=== PATIENT | male | born 1970 ===

== ENCOUNTER 2023-04-10 10:11 | Outpatient (CLI) | payer OTHER, SELFPAY ==
--- NOTE | 2023-04-10 09:30 | DI.RAD_ITS ---
Exam(s) XR KNEE LT 4V+ EXAM: XR KNEE LT 4V+ CLINICAL HISTORY: LEFT KNEE PAIN. TECHNIQUE: 2D digital imaging was performed. Three views. COMPARISON: No exams were available for comparison FINDINGS: BONES: No acute fracture is present. No bony destructive lesion is seen. Lucencies in the distal fem ur and proximal tibia consistent with prior ACL repair. JOINTS: There is severe narrowing of the medial femoral tibial joint space, with a [id number] appea pb. There is varus angulation. A moderate joint effusion is seen. Patella femoral joint space is maintained. SOFT TISSUE: Normal. IMPRESSION: Severe degenerative changes of the medial femoral tibial joint. DATA REPOSITORY: RADIATION DOSE DELIVERED:
== END 2023-04-10 10:12 | disposition home or self-care (01) ==
LOC: DIORS 10:12
PROVIDERS: Visit Provider Student in an Organized Health Care Education/Training Program
DX: M17.12 Unilateral primary osteoarthritis, left knee (principal)
CPT/HCPCS: 73564

== ENCOUNTER 2023-06-27 09:09 | Day surgery (SDC) | payer OTHER, SELFPAY ==
--- NOTE | 2023-06-27 08:09 | HPE_ITS ---
Assessment and Plan Assessment and plan (1) Left carpal tunnel syndrome: Status: Acute Assessment and plan: Plan: Educated patient on surgery covering surgical technique, recovery process, benefits and risks including but not limited to risk of infection, blood clot, damage to soft tissue/blood vessels/nerves in detail. After discussion patient gives verbal understanding of risks and elects to proceed with scheduling surgery. Patient had opportunity to have questions answered to their satisfaction. They will contact office if issues arise. Patient will continue to be scheduled for left carpal tunnel release and associated procedures with Dr Andrew Craroll History of Present Illness Narrative: Mr. Terry is a 53-year-old male who presents to hospital for surgery regarding his left carpal tunnel syndrome. Please refer to last orthopedic note for full history. Due to his continued symptoms he wishes to proceed with surgery. Denies any symptom changes since his last visit. Review of Systems Cardiovascular Cardiovascular: Denies chest pain and Denies dyspnea Respiratory Respiratory: Denies cough and Denies dyspnea PFSH All Active Problems Left carpal tunnel syndrome (Acute) Osteoarthritis of left knee (Acute) Bilateral carpal tunnel syndrome (Acute) Opioid use disorder (Acute) Hyperlipidemia (Acute) HTN (hypertension) (Chronic) Medical History ADD (attention deficit disorder) High cholesterol Surgical History History of bilateral inguinal hernia repair S/P ACL reconstruction LEFT PATELLAR TENDON GRAFT--2002 Social History Smoking/Tobacco Use Status: Former Tobacco Use Quit Date: 06/27/05 Tobacco: How many years used: 30 Smoking risk assessment performed?: Yes Alcohol Intake: former Drug use: Current Sobriety Substance use type: opiates Housing: other Do you feel safe at home: Yes Do you feel safe in your relationship?: Yes Meds Allergies and Home Medications Allergies Allergy/AdvReac Type Severity Reaction Status Date / Time No Known Allergies Allergy Verified 06/27/23 09:53 Home Medications Medication Instructions Recorded Confirmed Type atorvastatin 40 mg tablet 40 mg PO DAILY 01/10/23 06/27/23 History bupropion HCl 75 mg tablet 450 mg PO DAILY 01/10/23 06/27/23 History clonidine HCl 0.2 mg tablet 0.2 mg PO QHS 01/10/23 06/27/23 History docusate sodium 100 mg capsule 100 mg PO DAILY 01/10/23 06/27/23 History lisinopril 5 mg tablet 5 mg PO DAILY 01/10/23 06/27/23 History acetaminophen 500 mg tablet 500 mg PO Q6H PRN pain #60 tabs 06/27/23 Rx atomoxetine 40 mg capsule 40 mg PO DAILY 06/27/23 06/27/23 History buprenorphine HCl 2 mg sublingual 2 mg sublingual DAILY 06/27/23 06/27/23 History tablet celecoxib 200 mg capsule (Celebrex) 200 mg PO BID 06/27/23 06/27/23 History hydrocodone 5 mg-acetaminophen 325 1 tab PO Q6H PRN severe pain #6 06/27/23 Rx mg tablet tabs Exam Const General: cooperative and no acute distress Resp Effort & Inspection: normal respiratory effort and able to speak in complete sentences Auscultation: clear to auscultation bilaterally, no rales, no rhonchi and no wheezes Cardio Heart Sounds: S1 normal, S2 normal and no murmurs
--- NOTE | 2023-06-27 08:13 | W.PM.DSUDISC ---
Date of service: 06/27/23 Time of Service: 10:49 Discharge Plan Disposition Patient Disposition: Home Condition: Good Discharge Details Reason For Visit: Left carpal tunnel syndrome Attending Provider: Daryn Carroll Primary Care Provider: Unknown,Unknown Home Meds and New Rx's Prescriptions: New hydrocodone-acetaminophen 5-325 mg tablet 1 tab PO Q6H PRN (Reason: severe pain) Qty: 6 0RF Rx Instructions: Take one tablet up to every 6 hours as needed for severe postoperative pain acetaminophen 500 mg tablet 500 mg PO Q6H PRN (Reason: pain) Qty: 60 2RF Continued atorvastatin 40 mg tablet 40 mg PO DAILY bupropion HCl 75 mg tablet 450 mg PO DAILY Rx Instructions: administer 6 hours apart clonidine HCl 0.2 mg tablet 0.2 mg PO QHS Hold Instructions: Pt Stopped/Never Started docusate sodium 100 mg capsule 100 mg PO DAILY lisinopril 5 mg tablet 5 mg PO DAILY buprenorphine HCl 2 mg tablet, sublingual 2 mg sublingual DAILY atomoxetine 40 mg capsule 40 mg PO DAILY celecoxib [Celebrex] 200 mg capsule 200 mg PO BID Discharge Instructions Stand Alone Forms: [place] Tunnel Release Referrals: Daryn Carroll MD [ [facility] STAFF PHYSICIAN] - Activity:: Elevate Remove Dressings/Wound Care:: 48 hours Shower/Bathe:: 48 hours Diet:: As Tolerated Discharge Orders Discharge Orders: Discharge Order (Routine); Ordered 06/27/23 Ordered By: Roma Dejesus DS: Diagnosis Discharge Diagnosis (1) Left carpal tunnel syndrome: Status: Acute
[2023-06-27 09:05] VITALS: BP 124/81; PULSE 60; RESP 18; TEMP 36.4; O2SAT 100
[2023-06-27 09:31] VITALS: BP 124/81; PULSE 60; RESP 18; TEMP 36.4; O2SAT 100
--- NOTE | 2023-06-27 09:44 | W.ANESPRE ---
General Info Date of Service Date Performed: 06/27/23 Height: 5 ft 6 in Weight: 76.3 kg Body Mass Index (BMI): 27.1 Surgical Procedure: Operation Date: 06/27/23 10:25 Proposed Procedure Side Surgeon p Wrist ECTR Left Daryn Carroll MD Actual Procedure Side Surgeon p Wrist ECTR Left Daryn Carroll MD Pre-Op Diagnosis Post-Op Diagnosis carpal tunnel syndrome, left carpal tunnel syndrome, left Meds Allergies and Home Medications Allergies Allergy/AdvReac Type Severity Reaction Status Date / Time No Known Allergies Allergy Verified 06/27/23 09:53 Home Medication Medication Instructions Recorded atorvastatin 40 mg tablet 40 mg PO DAILY 01/10/23 bupropion HCl 75 mg tablet 450 mg PO DAILY 01/10/23 clonidine HCl 0.2 mg tablet 0.2 mg PO QHS 01/10/23 docusate sodium 100 mg capsule 100 mg PO DAILY 01/10/23 lisinopril 5 mg tablet 5 mg PO DAILY 01/10/23 atomoxetine 40 mg capsule 40 mg PO DAILY 06/27/23 buprenorphine HCl 2 mg sublingual 2 mg sublingual DAILY 06/27/23 tablet celecoxib 200 mg capsule (Celebrex) 200 mg PO BID 06/27/23 Current Visit Medications: Current Medications Generic Name Dose Route Start Last Admin Trade Name Shamirq PRN Reason Stop Dose Admin Acetaminophen 650 mg 06/27/23 08:09 Acetaminophen 325 Mg Tab PO 07/27/23 08:08 Q4H PRN PRN Hydrocodone Bitart/Acetaminophen 0 tab 06/27/23 08:09 Hydrocodone 5/Acetaminophen 325 Tab PO 07/27/23 08:08 Q3H PRN PRN Pain Ringer's Solution 1,000 mls @ 80 mls/hr 06/27/23 06:00 IV 07/23/23 23:59 INFUSION PANCHO Cefazolin Sodium/Dextrose 2 gm in 50 mls @ 100 mls/hr 06/27/23 06:00 Ancef Duplex IVPB 06/27/23 16:00 PREOP PANCHO IV Miscellaneous Supplies 1 each 06/27/23 06:00 Iv Access IV 07/23/23 23:59 DIRECTED PANCHO Sodium Chloride 0 ml 06/27/23 06:00 Normal Saline Flush 10 Ml Syr IV 07/23/23 23:59 PRN PRN Sodium Chloride 0 ml 06/27/23 06:00 Normal Saline 10 Ml Vial IJ 07/23/23 23:59 DIRECTED PRN Sterile Water 0 ml 06/27/23 06:00 Water,Injection,Sterile 10 Ml Vial IJ 07/23/23 23:59 DIRECTED PRN PFSH Active Problems Active Problems: Problem Status Onset Code Left carpal tunnel syndrome G56.02 Osteoarthritis of left knee M17.12 Bilateral carpal tunnel syndrome G56.03 Opioid use disorder F11.90 Hyperlipidemia E78.5 HTN (hypertension) I10 Medical History Medical History ADD (attention deficit disorder) High cholesterol Surgical History Surgical History History of bilateral inguinal hernia repair S/P ACL reconstruction LEFT PATELLAR TENDON GRAFT--2002 Tobacco Smoking/Tobacco Use Status: Former Tobacco Use Alcohol Alcohol Intake: former Substance Use Substance use: Current Sobriety Substance use type: opiates Vital Signs and Lab Results Vital Signs Most Recent Vital Signs in EMR: Most Recent Vital Signs Temp Pulse Resp BP Pulse Ox 36.4 C L 60 18 124/81 100 06/27/23 09:31 06/27/23 09:31 06/27/23 09:31 06/27/23 09:31 06/27/23 09:31 Lab Results Blood Type / Crossmatch: No Data to Display Complete Blood Count: No Data to Display Complete Metabolic Panel: No Data to Display Liver Function Panel: No Data to Display Coagulation Panel: No Data to Display Cardiac Panel: No Data to Display Arterial Blood Gas: No Data to Display Venous Blood Gas: No Data to Display Pancreas Panel: No Data to Display Thyroid Panel: No Data to Display Infectious Disease: No Data to Display Blood Cultures: No Data to Display Toxicology Panel: No Data to Display Anesthesia Assessment and Plan Anesthesia History Personal History: No History of Anesthesia Complications Family History: No Family History of Anesthesia Complications Exercise Tolerance Exercise Tolerance: Metabolic Equivalents>4 Pertinent Negatives Pertinent Negatives: No Symptoms of GERD, No Major Cardiovascular Symptoms or Complaints and No Major Pulmonary Symptoms or Complaints Cardiac & Pulmonary Exam Cardiac Exam: Normal S1/S2 Heart Sounds Pulmonary Exam: Clear Bilateral Breath Sounds Implantable Cardiac Device Does patient have a Pacemaker or an ICD?: No Airway Exam Known Difficult Airway: No Mallampati Class: 1 Mouth Opening: Normal (> 3cm) Thyromental Distance: Greater than 3 cm Neck Range of Motion: Full ROM Neck Circumference: Normal Teeth Condition: Generalized Poor Dentition ASA Classification ASA Score: ASA 2 Emergency Case?: No NPO Status NPO Status: NPO Clears >2 hours, Solids >8 hours Anesthesia Plan Resuscitation Status: Full Code Anesthesia Technique: General Anesthesia Airway Planned: Natural Airway Monitors Used: Standard Monitors
[2023-06-27 09:47] VITALS: BMI 27.1
[2023-06-27] MEDS: Lactated Ringers 1,000 ML 80 ML IV (09:56)
[2023-06-27] MEDS: ceFAZolin 2 GM/50 ML BAG IVPB (10:33)
[2023-06-27] MEDS: Lidocaine 1% Multi-Dose W/EPI 1/100,000 50 ML VIAL (10:37)
[2023-06-27 10:51] VITALS: BP 144/74; PULSE 81; RESP 16; TEMP 36.4; O2SAT 95
[2023-06-27 11:10] VITALS: BP 164/89; PULSE 86; RESP 16; TEMP 36.4; O2SAT 96
--- NOTE | 2023-06-27 11:10 | W.ANESPOSTOP ---
Postoperative Evaluation Date, Time and Location Date Performed: 06/27/23 Time Performed: 11:10 Patient Location: Day Surgery Unit Vital Signs Most Recent Imported Vital Signs: Most Recent Vital Signs Temp Pulse Resp BP Pulse Ox 36.4 C L 81 16 144/74 H 95 06/27/23 10:51 06/27/23 10:51 06/27/23 10:51 06/27/23 10:51 06/27/23 10:51 Pain Score Most Recent Pain Score: Most Recent Pain Score Pain Level 0 06/27/23 10:51 Assessment Mental Status: Awake (Alert & Oriented to Patient Baseline) Airway and Respiratory Function: Patent airway with normal (patient baseline) respiratory exam Cardiovascular Function: Hemodynamically Stable Hydration Status: Adequately Hydrated Nausea & Vomiting: No Nausea or Vomiting Pain: Pt. Denies Any Pain Peripheral Nerve Block: Patient did not receive a nerve block
--- NOTE | 2023-06-27 12:47 | W.PM.OP ---
Date of service: 06/27/23 Time of Service: 11:00 Operative Note Operative Note DATE OF PROCEDURE: 06/27/23 PRE-OP DIAGNOSIS: Left Carpal Tunnel Syndrome POST-OP DIAGNOSIS: same PROCEDURE: Left Endoscopic Carpal Tunnel Release SURGEON: Daryn Carroll ANESTHESIA TYPE: General:No Airway Refer to Anesthesia Record ESTIMATED BLOOD LOSS: 0 PATHOLOGY: none sent TOURNIQUET TIME: 5 COMPLICATIONS: None Patient was transported to: same day Patient's condition: stable Indications: I have seen Dion in clinic for symptoms of carpal tunnel syndrome. The numbness, tingling, and pain limited function. Clinical exam findings with nerve conduction tests confirmed the diagnosis of carpal tunnel syndrome. Nonoperative measures such as bracing, time, activity modifications had been tried but disability and pain persisted. I discussed carpal tunnel release with the patient. I reviewed the risks of the procedure to include, but not limited to, bleeding, infection, pain, stiffness, incomplete release, damage to nerves or vessels, persistent numbness, recurrence. Despite these risks, the patient elected to proceed. Findings: There was tightened carpal tunnel. This was dilated and released successfully with the endoscopic with increased space within the tunnel. The antebrachial fascia was released proximally freeing the median nerve at the wrist. Procedure Description: Dion was greeted in the preoperative holding area where the correct side was identified and marked. The consent was reviewed with the patient and signed. The history and physical was updated. All questions were answered. He was taken back to the operating room. The patient was placed into the supine position on the operating room table with the left arm on an arm board. A nonsterile tourniquet was placed high onto the arm. All bony prominences were well padded. Prophylactic antibiotics in the form of Cefazolin were administered. The left arm was then prepped with Chloraprep and draped in a standard fashion with stockinette and extremity drape. A timeout to confirm correct identity, side and site, procedure, allergies, anesthesia, and medical concerns was performed. The surgical site was marked in the volar wrist creases in line with the radial border of the fourth ray. This area was anesthetized with approximately 6cc of 1% Lidocaine. The limb was then exsanguinated with an Esmarch. The skin was incised with a 15 blade, approximately 1cm. The skin only was cut and the deeper tissue was dissected bluntly with a tenotomy scissor, avoiding passing nerve and venous structures. The fascia was penetrated and opened bluntly. A two-prong skin hook was placed under this proximal fascial edge. A series of hamate finders were used to identify and dilate the carpal tunnel. Synovial elevator was used to free synovial attachments to the underside of the transverse carpal ligament. My thumb was kept in the palm to patti the distal extent of the carpal tunnel and correctly position the hand. The [employer] endoscope was inserted without difficulty and without resistance. Excellent visualization showed horizontally running fibers of the transverse carpal ligament (TCL). The distal extent of the TCL was visualized and the end of the scope palpated with the thumb. The blade was elevated and withdrawn from distal to proximal. The TCL was split into two flaps. The endoscope was reinserted to confirm complete release and any remnant ligament was incised. The scope was withdrawn and the proximal aspect of the carpal tunnel was grossly inspected and appeared release with the median nerve visible. The antebrachial fascia at the level of the wrist was then freed from the overlying skin and then the underlying median nerve with blunt dissection. This was transected longitudinally for about 3cm proximal to the wrist incision. The wound was then irrigated with easy flow of irrigant distally and proximally. The incision was closed with a single 4-0 Nylon suture. The wound was dressed with Xeroform, Gauze, Kerlix and John. The tourniquet was deflated with the initial dressing and held with some pressure. Blood flow returned easily to all digits with capillary refill less than 2 seconds. The patient tolerated the procedure well and was returned to the Same Day Surgery area in a stable condition suffering no known complication.
== END 2023-06-27 11:40 | disposition home or self-care (01) ==
LOC: SUR 09:09
PROVIDERS: Visit Provider Student in an Organized Health Care Education/Training Program
PROC: 01N54ZZ Release Median Nerve, Percutaneous Endoscopic Approach (ICD-10-PCS; CPT 29848; principal; 2023-06-27 10:15)
DX: G56.02 Carpal tunnel syndrome, left upper limb (principal); I10 Essential (primary) hypertension
CPT/HCPCS: 29848; J0690

== ENCOUNTER 2024-05-08 06:07 | Day surgery (SDC) | payer OTHER, SELFPAY ==
[2024-05-08 06:23] VITALS: BP 132/97; PULSE 82; RESP 18; TEMP 36.4; O2SAT 97
[2024-05-08] MEDS: Acetaminophen 500 MG TAB 1000 MG PO (06:38)
[2024-05-08] MEDS: Celecoxib 200 MG CAP 400 MG PO (06:38)
[2024-05-08] MEDS: Normal Saline Flush 10 ML SYR IV (06:50)
--- NOTE | 2024-05-08 06:55 | HPE_ITS ---
Assessment and Plan Assessment and plan (1) Right carpal tunnel syndrome: Status: Acute Assessment and plan: Dion is a 54-year-old male who has carpal tunnel some on the right side. He has successful left carpal tunnel release. He is today for the right side. I reviewed the technical details with him. I discussed the risk to include bleeding, infection, pain, stiffness, continued numbness, incomplete release, need for repeat procedures, inflammatory changes in the carpal tunnel. Despite these risk, he elects to proceed. He also briefly mentions that he is having some new numbness over the dorsum of the left little finger and ring finger p rimarily with some involving the middle finger. It is localized to the hand. It does not come down the forearm. He also is having some increasing swelling and pain of his knee. Both of these seem to be nonurgent and we can address those at follow-up clinic visits. History of Present Illness History of Present Illness Chief Complaint: Right Carpal Tunnel Syndrome Narrative: Dion is a 54-year-old male who has bilateral carpal tunnel syndrome. He is status post left carpal tunnel release in June of last year which is doing well. He currently has ongoing right sided symptoms. He continues have numbness and tingling about the thumb, index, and middle fingers. Given success of the left side he like to proceed with a right carpal tunnel release today. Review of Systems All systems reviewed & are unremarkable except as noted in HPI and below PFSH All Active Problems (Updated 05/08/24 @ 06:59 by Daryn Carroll MD) Right carpal tunnel syndrome (Acute) Left carpal tunnel syndrome (Acute) s/p left ECTR DOS: 06/27/23 Osteoarthritis of left knee (Acute) Bilateral carpal tunnel syndrome (Acute) Opioid use disorder (Acute) Hyperlipidemia (Acute) HTN (hypertension) (Chronic) Medical History ADD (attention deficit disorder) High cholesterol Surgical History History of bilateral inguinal hernia repair S/P ACL reconstruction LEFT PATELLAR TENDON GRAFT--2002 Social History Smoking/Tobacco Use Status: Unknown Smoking risk assessment performed?: Yes Alcohol Intake: former Drug use: Current Sobriety Substance use type: opiates Housing: other Do you feel safe at home: Yes Additional Social history: [facility] Meds Allergies and Home Medications Allergies Allergy/AdvReac Type Severity Reaction Status Date / Time No Known Allergies Allergy Verified 05/08/24 06:20 Home Medications ?Medication ?Instructions ?Recorded ?Confirmed ?Type atorvastatin 40 mg tablet 40 mg PO DAILY 01/10/23 05/08/24 History bupropion HCl 75 mg tablet 450 mg PO DAILY 01/10/23 05/08/24 History docusate sodium 100 mg capsule 100 mg PO DAILY 01/10/23 05/07/24 History lisinopril 5 mg tablet 5 mg PO DAILY 01/10/23 05/08/24 History acetaminophen 500 mg tablet 500 mg PO Q6H PRN pain #60 tabs 06/27/23 05/08/24 Rx atomoxetine 40 mg capsule 40 mg PO DAILY 06/27/23 05/08/24 History buprenorphine HCl 2 mg sublingual 2 mg sublingual DAILY 06/27/23 05/08/24 History tablet celecoxib 200 mg capsule (Celebrex) 200 mg PO BID 06/27/23 05/07/24 History Exam Const General: cooperative, healthy appearing, comfortable and no acute distress Resp Auscultation: clear to auscultation bilaterally Cardio Rate: regular rate Rhythm: regular rhythm Results Last Vital Signs Temp 36.4 C L 05/08/24 06:23 Pulse 82 05/08/24 06:23 Resp 18 05/08/24 06:23 BP 132/97 H 05/08/24 06:23 Pulse Ox 97 05/08/24 06:23
--- NOTE | 2024-05-08 07:05 | W.ANESPRE ---
General Info Date of Service Date Performed: 05/08/24 Height: 5 ft 6 in Weight: 77.9 kg Body Mass Index (BMI): 27.7 Surgical Procedure: Operation Date: 05/08/24 07:40 Proposed Procedure Side Surgeon p Wrist ECTR Right Daryn Carroll MD Actual Procedure Side Surgeon p Wrist ECTR Right Daryn Carroll MD Meds Allergies and Home Medications Allergies Allergy/AdvReac Type Severity Reaction Status Date / Time No Known Allergies Allergy Verified 05/08/24 06:20 Home Medication ?Medication ?Instructions ?Recorded atorvastatin 40 mg tablet 40 mg PO DAILY 01/10/23 bupropion HCl 75 mg tablet 450 mg PO DAILY 01/10/23 docusate sodium 100 mg capsule 100 mg PO DAILY 01/10/23 lisinopril 5 mg tablet 5 mg PO DAILY 01/10/23 acetaminophen 500 mg tablet 500 mg PO Q6H PRN pain #60 tabs 06/27/23 atomoxetine 40 mg capsule 40 mg PO DAILY 06/27/23 buprenorphine HCl 2 mg sublingual 2 mg sublingual DAILY 06/27/23 tablet celecoxib 200 mg capsule (Celebrex) 200 mg PO BID 06/27/23 hydrocodone 5 mg-acetaminophen 325 1 tab PO Q6H PRN pain #4 tabs 05/08/24 mg tablet Current Visit Medications: Current Medications Generic Name Dose Route Start Last Admin Trade Name Freq PRN Reason Stop Dose Admin Acetaminophen 1,000 mg 05/08/24 06:00 05/08/24 06:38 Acetaminophen 500 Mg Tab PO 05/08/24 23:59 1,000 mg PREOP PANCHO Administration Celecoxib 400 mg 05/08/24 06:00 05/08/24 06:38 Celecoxib 200 Mg Cap PO 05/08/24 23:59 400 mg PREOP PANCHO Administration Ringer's Solution 1,000 mls @ 80 mls/hr 05/08/24 06:00 IV 05/08/24 23:59 INFUSION PANCHO Cefazolin Sodium/Dextrose 2 gm in 50 mls @ 100 mls/hr 05/08/24 06:00 Ancef Duplex IVPB 05/08/24 23:59 PREOP PANCHO IV Miscellaneous Supplies 1 each 05/08/24 06:00 Iv Access IV 05/08/24 23:59 DIRECTED PANCHO Sodium Chloride 0 ml 05/08/24 06:00 Normal Saline Flush 10 Ml Syr IV 05/08/24 23:59 PRN PRN Sodium Chloride 0 ml 05/08/24 06:00 Normal Saline 10 Ml Vial IJ 05/08/24 23:59 DIRECTED PRN Sterile Water 0 ml 05/08/24 06:00 Water,Injection,Sterile 10 Ml Vial IJ 05/08/24 23:59 DIRECTED PRN PFSH Active Problems Active Problems: Problem Status Onset Code Right carpal tunnel syndrome Acute G56.01 Left carpal tunnel syndrome Acute G56.02 Osteoarthritis of left knee Acute M17.12 Bilateral carpal tunnel syndrome Acute G56.03 Opioid use disorder Acute F11.90 Hyperlipidemia Acute E78.5 HTN (hypertension) Chronic I10 Medical History Medical History ADD (attention deficit disorder) High cholesterol Surgical History Surgical History History of bilateral inguinal hernia repair S/P ACL reconstruction LEFT PATELLAR TENDON GRAFT--2002 Tobacco Smoking/Tobacco Use Status: Unknown Alcohol Alcohol Intake: former Substance Use Substance use: Current Sobriety Substance use type: opiates Vital Signs and Lab Results Vital Signs Most Recent Vital Signs in EMR: Most Recent Vital Signs Temp Pulse Resp BP Pulse Ox 36.4 C L 82 18 132/97 H 97 05/08/24 06:23 05/08/24 06:23 05/08/24 06:23 05/08/24 06:23 05/08/24 06:23 Lab Results Blood Type / Crossmatch: No Data to Display Complete Blood Count: No Data to Display Complete Metabolic Panel: No Data to Display Liver Function Panel: No Data to Display Coagulation Panel: No Data to Display Cardiac Panel: No Data to Display Arterial Blood Gas: No Data to Display Venous Blood Gas: No Data to Display Pancreas Panel: No Data to Display Thyroid Panel: No Data to Display Infectious Disease: No Data to Display Blood Cultures: No Data to Display Toxicology Panel: No Data to Display Anesthesia Assessment and Plan Anesthesia History Personal History: No History of Anesthesia Complications Family History: No Family History of Anesthesia Complications Exercise Tolerance Exercise Tolerance: Metabolic Equivalents>4 Pertinent Negatives Pertinent Negatives: No Symptoms of GERD, No Major Cardiovascular Symptoms or Complaints and No Major Pulmonary Symptoms or Complaints Cardiac & Pulmonary Exam Cardiac Exam: Normal S1/S2 Heart Sounds Pulmonary Exam: Clear Bilateral Breath Sounds Implantable Cardiac Device Does patient have a Pacemaker or an ICD?: No Airway Exam Known Difficult Airway: No Mallampati Class: 1 Mouth Opening: Normal (> 3cm) Thyromental Distance: Greater than 3 cm Neck Range of Motion: Full ROM Neck Circumference: Normal Teeth Condition: Generalized Poor Dentition ASA Classification ASA Score: ASA 2 Emergency Case?: No NPO Status NPO Status: NPO Clears >2 hours, Solids >8 hours Anesthesia Plan Resuscitation Status: Full Code Anesthesia Technique: General Anesthesia Airway Planned: Natural Airway Monitors Used: Standard Monitors
--- NOTE | 2024-05-08 07:08 | W.PM.DSUDISC ---
Date of service: 05/08/24 Time of Service: 07:08 Discharge Plan Disposition Patient Disposition: Home Condition: Good Discharge Details Reason For Visit: R ECTR Attending Provider: Daryn Carroll Primary Care Provider: Unknown,Unknown Home Meds and New Rx's Prescriptions: New hydrocodone-acetaminophen 5-325 mg tablet 1 tab PO Q6H PRN (Reason: pain) Qty: 4 0RF Continued atorvastatin 40 mg tablet 40 mg PO DAILY bupropion HCl 75 mg tablet 450 mg PO DAILY Rx Instructions: administer 6 hours apart docusate sodium 100 mg capsule 100 mg PO DAILY lisinopril 5 mg tablet 5 mg PO DAILY buprenorphine HCl 2 mg tablet, sublingual 2 mg sublingual DAILY atomoxetine 40 mg capsule 40 mg PO DAILY celecoxib [Celebrex] 200 mg capsule 200 mg PO BID acetaminophen 500 mg tablet 500 mg PO Q6H PRN (Reason: pain) Qty: 60 2RF Discharge Instructions Additional Instructions: You will continue your acetaminophen and celecoxib for pain control. Referrals: Daryn Carroll MD [ [facility] STAFF PHYSICIAN] - Activity:: Activity as Tolerated Remove Dressings/Wound Care:: 48 hours Shower/Bathe:: 48 hours Diet:: As Tolerated Discharge Orders Discharge Orders: Discharge Order (Routine); Ordered 05/08/24 Ordered By: Antonio Koroma DS: Diagnosis Discharge Diagnosis (1) Right carpal tunnel syndrome: Status: Acute
[2024-05-08 07:19] VITALS: BMI 27.7
[2024-05-08] MEDS: ceFAZolin 2 GM/50 ML BAG IVPB (07:32)
[2024-05-08] MEDS: Lidocaine 1% Pres-Free W/EPI 1/200,000 10 ML VIAL (07:41)
[2024-05-08 07:52] VITALS: BP 127/87; PULSE 85; RESP 18; TEMP 36.4; O2SAT 95
--- NOTE | 2024-05-08 08:18 | W.ANESPOSTOP ---
Postoperative Evaluation Date, Time and Location Date Performed: 05/08/24 Time Performed: 08:19 Patient Location: Day Surgery Unit Vital Signs Most Recent Imported Vital Signs: Most Recent Vital Signs Temp Pulse Resp BP Pulse Ox 36.4 C L 85 18 127/87 95 05/08/24 07:52 05/08/24 07:52 05/08/24 07:52 05/08/24 07:52 05/08/24 07:52 Pain Score Most Recent Pain Score: Most Recent Pain Score Pain Level 0 05/08/24 07:52 Assessment Mental Status: Awake (Alert & Oriented to Patient Baseline) Airway and Respiratory Function: Patent airway with normal (patient baseline) respiratory exam Cardiovascular Function: Hemodynamically Stable Hydration Status: Adequately Hydrated Nausea & Vomiting: No Nausea or Vomiting Pain: Pt. Denies Any Pain Peripheral Nerve Block: Patient did not receive a nerve block
[2024-05-08 08:22] VITALS: BP 153/99; PULSE 94; RESP 18; TEMP 36.3; O2SAT 97
--- NOTE | 2024-05-08 13:21 | ROE_ITS ---
Date of service: 05/08/24 Time of Service: 07:30 Operative Note Operative Note DATE OF PROCEDURE: 05/08/24 PRE-OP DIAGNOSIS: Right Carpal Tunnel Syndrome POST-OP DIAGNOSIS: same PROCEDURE: Right Endoscopic Carpal Tunnel Release SURGEON: Daryn Carroll ANESTHESIA TYPE: General:No Airway Refer to Anesthesia Record ESTIMATED BLOOD LOSS: 0 PATHOLOGY: none sent TOURNIQUET TIME: 5 COMPLICATIONS: None Patient was transported to: same day Patient's condition: stable Indications: I have seen Dion in clinic for symptoms of carpal tunnel syndrome. The numbness, tingling, and pain limited function. Clinical exam findings confirmed the diagnosis of carpal tunnel syndrome. He had a succssful carpal tunnel release on the left side. Nonoperative measures such as bracing, time, activity modifications had been tried but disability and pain persisted. I discussed carpal tunnel release with the patient. I reviewed the risks of the procedure to include, but not limited to, bleeding, infection, pain, stiffness, incomplete release, damage to nerves or vessels, persistent numbness, recurrence. Despite these risks, the patient elected to proceed. Findings: There was tightened carpal tunnel. This was dilated and released successfully with the endoscopic with increased space within the tunnel. The antebrachial fascia was released proximally freeing the median nerve at the wrist. Procedure Description: Dion was greeted in the preoperative holding area where the correct side was identified and marked. The consent was reviewed with the patient and signed. The history and physical was updated. All questions were answered. He was taken back to the operating room. The patient was placed into the supine position on the operating room table with the left arm on an arm board. A nonsterile tourniquet was placed high onto the arm. All bony prominences were well padded. Prophylactic antibiotics in the form of Cefazolin were administered. The left arm was then prepped with Chloraprep and draped in a standard fashion with stockinette and extremity drape. A timeout to confirm correct identity, side and site, procedure, allergies, anesthesia, and medical concerns was performed. The surgical site was marked in the volar wrist creases in line with the radial border of the fourth ray. This area was anesthetized with approximately 6cc of 1% Lidocaine. The limb was then exsanguinated with an Esmarch. The skin was incised with a 15 blade, approximately 1cm. The skin only was cut and the deeper tissue was dissected bluntly with a tenotomy scissor, avoiding passing nerve and venous structures. The fascia was penetrated and opened bluntly. A two-prong skin hook was placed under this proximal fascial edge. A series of hamate finders were used to identify and dilate the carpal tunnel. Synovial kushal vator was used to free synovial attachments to the underside of the transverse carpal ligament. My thumb was kept in the palm to patti the distal extent of the carpal tunnel and correctly position the hand. The Microaire endoscope was inserted without difficulty and without resistance. Excellent visualization showed horizontally running fibers of the transverse carpal ligament (TCL). The distal extent of the TCL was visualized and the end of the scope palpated with the thumb. The blade was elevated and withdrawn from distal to proximal. The TCL was split into two flaps. The endoscope was reinserted to confirm complete release and any remnant ligament was incised. The scope was withdrawn and the proximal aspect of the carpal tunnel was grossly inspected and appeared release with the median nerve visible. The antebrachial fascia at the level of the wrist was then freed from the overlying skin and then the underlying median nerve with blunt dissection. This was transected longitudinally for about 3cm proximal to the wrist incision. The wound was then irrigated with easy flow of irrigant distally and proximally. The incision was closed with a single 4-0 Nylon suture. The wound was dressed with Xeroform, Gauze, Kerlix and John. The tourniquet was deflated with the initial dressing and held with some pressure. Blood flow returned easily to all digits with capillary refill less than 2 seconds. The patient tolerated the procedure well and was returned to the Same Day Surgery area in a stable condition suffering no known complication.
== END 2024-05-08 08:50 | disposition home or self-care (01) ==
PROVIDERS: Visit Provider Student in an Organized Health Care Education/Training Program
PROC: 01N54ZZ Release Median Nerve, Percutaneous Endoscopic Approach (ICD-10-PCS; CPT 29848; principal; 2024-05-08 07:30)
DX: G56.01 Carpal tunnel syndrome, right upper limb (principal)
CPT/HCPCS: 29848; J0690; J2004; J2250; J2704

== ENCOUNTER 2024-11-07 13:29 | Outpatient (CLI) | payer OTHER, SELFPAY ==
--- NOTE | 2024-11-07 09:45 | DI.RAD_ITS ---
Exam(s) XR KNEE LT 1V XR STANDING ALIGNMENT EXAM: XR STANDING ALIGNMENT CLINICAL HISTORY: OA L KNEE. TECHNIQUE: 2D digital imaging was performed. Standing AP views were performed from the pelvis throu gh the ankles. COMPARISON: CR XR KNEE LT 4V+ from 04/10/2023 CR XR KNEE LT 1V from 11/07/2024 FINDINGS: BONES: No acute fracture is present. No bony destructive lesion is seen. There is evidence of prior ACL repair. Leg length discrepancy: No significant overall leg length discrepancy. JOINTS: Knees: There are severe degenerative changes of the left knee, at the medial femoral tibial j oint space where there is periarticular spurring. There is varus angulation at the knee. The right knee joint spaces are maintained. The ankle joints are partially obscured by ankle bracelets. The hip joints are unremarkable. SOFT TISSUE: Tiny metallic fragments at the level of the upper right femur. IMPRESSION: Severe degenerative changes of the left knee. No significant leg length discrepancy. DATA REPOSITORY: RADIATION DOSE DELIVERED:
== END 2024-11-07 13:30 | disposition home or self-care (01) ==
LOC: DIORS 13:29
PROVIDERS: PCP Physical Therapist; Visit Provider Physician Assistant
DX: M17.12 Unilateral primary osteoarthritis, left knee (principal)
CPT/HCPCS: 73560; 77073

== ENCOUNTER 2025-06-06 09:48 | Outpatient (REF) | payer OTHER, SELFPAY ==
[2025-06-06 11:32] LABS: HCT 41.4 % (40.0-50.0); HGB 13.9 g/dL (13.5-17.5); MCH 29.1 pg (27.0-33.0); MCHC 33.6 % (32.0-36.0); MCV 87 fL (80-95); MPV 9.0 fL (8.0-11.0); Platelet Count 261 10^3/uL (130-400); RBC 4.77 10^6/uL (4.36-5.78); RDW 12.4 % (11.8-14.1); RDW-SD 39.2 fL; WBC 5.45 10^3/uL (4.4-10.8)
[2025-06-06 11:44] LABS: Anion Gap 7.3 mmol/L (3-11); BUN 17 mg/dL (9-23); CO2 28.7 mmol/L (20.0-31.0); Calcium 8.8 mg/dL (8.3-10.6); Chloride 105 mmol/L (98-107); Glucose 88 mg/dL (74-106); Potassium 4.4 mmol/L (3.5-5.1); Sodium 141 mmol/L (136-145)
== END 2025-06-06 09:49 | disposition home or self-care (01) ==
LOC: LBN 09:48
PROVIDERS: PCP Physical Therapist; Visit Provider Student in an Organized Health Care Education/Training Program
DX: M17.12 Unilateral primary osteoarthritis, left knee (principal); Z01.818 Encounter for other preprocedural examination
CPT/HCPCS: 80048; 85027

== ENCOUNTER 2025-06-11 07:11 | Day surgery (SDC) | payer OTHER, SELFPAY ==
[2025-06-11] VITALS (15 sets, daily range): BP systolic 92–180; BP diastolic 61–116; PULSE 62–76; RESP 11–16; TEMP 36–36.8; O2SAT 91–99; BMI 29.0
--- NOTE | 2025-06-11 07:21 | PDOC.DSDIS_ITS ---
Date of service: 06/11/25 Discharge Plan Disposition Patient Disposition: Home Condition: Good Discharge Details Reason For Visit: L TKR Attending Provider: Daryn Carroll Primary Care Provider: Bob Marina Home Meds and New Rx's Prescriptions: New aspirin 81 mg tablet,delayed release (DR/EC) 81 mg PO BID Qty: 60 0RF acetaminophen 500 mg tablet 1,000 mg PO TID Qty: 90 3RF pantoprazole 40 mg tablet,delayed release (DR/EC) 40 mg PO DAILY Qty: 14 0RF dexamethasone 4 mg tablet 4 mg PO DAILY Qty: 2 0RF gabapentin 300 mg capsule 300 mg PO QHS Qty: 14 0RF oxycodone 15 mg tablet 15 mg PO Q4H MDD 6 tabs PRN (Reason: pain) Qty: 18 0RF Continued atorvastatin 40 mg tablet 40 mg PO DAILY docusate sodium 100 mg capsule 100 mg PO DAILY bupropion HCl [Wellbutrin XL] 150 mg tablet extended release 24 hr 450 mg PO QAM famotidine 20 mg tablet 20 mg PO DAILY lisinopril 5 mg tablet 10 mg PO DAILY atomoxetine 40 mg capsule 40 mg PO DAILY celecoxib [Celebrex] 200 mg capsule 200 mg PO BID buprenorphine-naloxone 8-2 mg tablet, sublingual 3 tab sublingual DAILY tamsulosin 0.4 mg capsule 0.4 mg PO DAILY Discontinued acetaminophen 500 mg tablet 500 mg PO Q6H PRN (Reason: pain) Qty: 60 2RF Discharge Instructions Additional Instructions: Total Knee Discharge Instructions Activity: The most important activity is to walk and to work on gentle motion (both flexion and extension). You should try to take short walks a few times a day. It is important that when resting you work on keeping the knee straight. Avoid putting a pillow behind the knee as this will encourage flexion. Work on range of motion exercises as provided by Physical Therapy. - Start outpatient physical therapy within 2 weeks. - You should wear the YULIYA hose on both legs for 2 weeks. You may remove these at night. You may also use any compression sock in place of the YULIYA hose. - Utilize [employer] to review exercises, see videos on exercises and obtain basic information pertaining to your surgery and your recovery. Dressing: Remove the John wrap by 2 days after your surgery and put on the YULIYA stocking given to you from the hospital. Keep the surgical dressing (underneath the JOHN wrap) in place for at least one week. After the first week it may be removed and replaced with light gauze and tape or nothing. The wound and dressing may get wet after 3 days but avoid soaking the dressing or otherwise it will need to be changed. Many people prefer covering the dressing with cling wrap (saran wrap) to minimize it from getting soaked. If it gets wet, just pat dry. If it starts to peel off then it will need to be changed. Medications: - You should take Tylenol and anti-inflammatory Celebrex as your primary pain control medications. If the Celebrex is too expensive or not covered, please call the office for another alternative (Advil/Ibuprofen or Naproxen/Aleve) - You have been prescribed a stronger pain medication Oxycodone for breakthrough pain, take as needed as prescribed. - You have also been prescribed a stomach acid reduction agent Pantoprozole to help reduce stomach acid and reflux. - You have been prescribed Gabapentin to take at night for restlessness and nerve pain. - You will be taking Aspirin 81mg twice a day for DVT prevention unless instructed otherwise. - You have also been prescribed Decadron to take to control post-operative nausea and pain. You will start this tomorrow. - If you have constipation you should take Colace or Miralax (both [id number]). It takes most people 3-4 days to have a bowel movement. Follow-up: 2 weeks If you have any acute concerns or questions, please do not hesitate to contact the office at [phone]. You may contact Dr. Carroll with any questions after hours through the hospital at [phone] or on his cell phone at [phone]. Stand Alone Forms: Portal Information Referrals: Daryn Carroll MD [ [facility] STAFF PHYSICIAN, Orthopaedic Surgical] Equipment/Supplies: Walker Activity:: Activity as Tolerated Shower/Bathe:: 72 hours Diet:: As Tolerated Discharge Orders Discharge Orders: Discharge Order (Routine); Ordered 06/11/25 Ordered By: Antonio Koroma DS: Diagnosis Discharge Diagnosis (1) Osteoarthritis of left knee: Status: Acute
[2025-06-11] MEDS: Acetaminophen 500 MG TAB 1000 MG PO (07:50)
[2025-06-11] MEDS: Gabapentin 300 MG CAP PO (07:50)
[2025-06-11] MEDS: Celecoxib 200 MG CAP 400 MG PO (07:50)
--- NOTE | 2025-06-11 08:14 | W.ANESPRE ---
General Info Date of Service Date Performed: 06/11/25 Height: 5 ft 6 in Weight: 81.7 kg Body Mass Index (BMI): 29.0 Surgical Procedure: Operation Date: 06/11/25 09:10 Proposed Procedure Side Surgeon p Knee Total Arthroplasty w/OrthAlign Left Daryn Carroll MD Meds Allergies and Home Medications Allergies Allergy/AdvReac Type Severity Reaction Status Date / Time No Known Allergies Allergy Verified 06/11/25 07:49 Home Medication ?Medication ?Instructions ?Recorded atorvastatin 40 mg tablet 40 mg PO DAILY 01/10/23 docusate sodium 100 mg capsule 100 mg PO DAILY 01/10/23 atomoxetine 40 mg capsule 40 mg PO DAILY 06/27/23 celecoxib 200 mg capsule (Celebrex) 200 mg PO BID 06/27/23 bupropion HCl 150 mg 24 hr tablet, 450 mg PO QAM 05/05/25 extended release (Wellbutrin XL) famotidine 20 mg tablet 20 mg PO DAILY 05/05/25 lisinopril 5 mg tablet 10 mg PO DAILY 05/05/25 buprenorphine 8 mg-naloxone 2 mg 3 tab sublingual DAILY 06/10/25 sublingual tablet tamsulosin 0.4 mg capsule 0.4 mg PO DAILY 06/10/25 acetaminophen 500 mg tablet 1,000 mg (2 x 500 mg) PO TID #90 06/11/25 tabs aspirin 81 mg tablet,delayed 81 mg PO BID #60 tabs 06/11/25 release dexamethasone 4 mg tablet 4 mg PO DAILY #2 tabs 06/11/25 gabapentin 300 mg capsule 300 mg PO QHS #14 caps 06/11/25 oxycodone 15 mg tablet 15 mg PO Q4H PRN pain #18 tabs 06/11/25 pantoprazole 40 mg tablet,delayed 40 mg PO DAILY #14 tabs 06/11/25 release Current Visit Medications: Current Medications Generic Name Dose Route Start Last Admin Trade Name Freq PRN Reason Stop Dose Admin Acetaminophen 1,000 mg 06/11/25 06:00 06/11/25 07:50 Acetaminophen 500 Mg Tab PO 06/11/25 23:59 1,000 mg PREOP PANCHO Administration Acetaminophen 1,000 mg 06/11/25 07:19 Acetaminophen 500 Mg Tab PO 07/11/25 07:18 TID PRN PRN Analgesia Celecoxib 400 mg 06/11/25 06:00 06/11/25 07:50 Celecoxib 200 Mg Cap PO 06/11/25 23:59 400 mg PREOP PANCHO Administration Docusate Sodium 100 mg 06/11/25 07:19 Docusate Sodium 100 Mg Cap PO 07/11/25 07:18 BID PRN PRN Constipation Gabapentin 300 mg 06/11/25 06:00 06/11/25 07:50 Gabapentin 300 Mg Cap PO 06/11/25 23:59 300 mg PREOP PANCHO Administration Ringer's Solution 1,000 mls @ 80 mls/hr 06/11/25 06:00 IV 06/11/25 23:59 INFUSION PANCHO Cefazolin Sodium/Dextrose 2 gm in 50 mls @ 100 mls/hr 06/11/25 06:00 Ancef Duplex IVPB 06/11/25 23:59 PREOP PANCHO Tranexamic Acid/Sodium Chloride 1,000 mg in 100 mls @ 600 mls/hr 06/11/25 06:00 IVPB 06/11/25 23:59 PREOP PANCHO Ondansetron HCl 4 mg 06/11/25 07:19 Ondansetron 4 Mg/2 Ml Vial IVP 07/11/25 07:18 Q6H PRN PRN Nausea Oxycodone HCl 0 mg 06/11/25 07:19 Oxycodone 5 Mg Tab PO 07/11/25 07:18 Q3H PRN PRN Pain Polyethylene Glycol 17 gm 06/11/25 07:19 Polyethylene Glycol 3350 17 Gm Packet PO 07/11/25 07:18 BID PRN PRN Constipation Sodium Chloride 0 ml 06/11/25 06:00 Normal Saline Flush 10 Ml Syr IV 06/11/25 23:59 PRN PRN Sodium Chloride 0 ml 06/11/25 06:00 Normal Saline 10 Ml Vial IJ 06/11/25 23:59 DIRECTED PRN Sterile Water 0 ml 06/11/25 06:00 Water,Injection,Sterile 10 Ml Vial IJ 06/11/25 23:59 DIRECTED PRN PFSH Active Problems Active Problems: Problem Status Onset Code Right carpal tunnel syndrome Acute G56.01 Osteoarthritis of left knee Acute M17.12 Bilateral carpal tunnel syndrome Acute G56.03 Opioid use disorder Acute F11.90 Hyperlipidemia Acute E78.5 HTN (hypertension) Chronic I10 Medical History Medical History Chronic respiratory disease 2018 [facility] Personality disorder Frequent urination ADD (attention deficit disorder) High cholesterol Surgical History Surgical History Left carpal tunnel syndrome s/p left ECTR DOS: 06/27/23 History of bilateral inguinal hernia repair S/P ACL reconstruction LEFT PATELLAR TENDON GRAFT--2002 Tobacco Smoking/Tobacco Use Status: Unknown Alcohol Alcohol Intake: former Substance Use Substance use: Current Sobriety Substance use type: opiates Vital Signs and Lab Results Vital Signs Most Recent Vital Signs in EMR: Most Recent Vital Signs Temp Pulse Resp BP Pulse Ox 36.6 C 72 16 129/90 95 06/11/25 07:24 06/11/25 07:24 06/11/25 07:24 06/11/25 07:24 06/11/25 07:24 Lab Results Complete Blood Count: WBC, (4.4-10.8) 5.45 10^3/uL 06/06/25, 08:45 RBC, (4.36-5.78) 4.77 10^6/uL 06/06/25, 08:45 Hgb, (13.5-17.5) 13.9 g/dL 06/06/25, 08:45 Hct, (40.0-50.0) 41.4 % 06/06/25, 08:45 Plt Count, (130-400) 261 10^3/uL 06/06/25, 08:45 Complete Metabolic Panel: Sodium, (136-145) 141 mmol/L 06/06/25, 08:45 Potassium, (3.5-5.1) 4.4 mmol/L 06/06/25, 08:45 Chloride, (98-107) 105 mmol/L 06/06/25, 08:45 Carbon Dioxide, (20.0-31.0) 28.7 mmol/L 06/06/25, 08:45 BUN, (9-23) 17 mg/dL 06/06/25, 08:45 Creatinine, (0.73-1.18) 0.65 mg/dL L 06/06/25, 08:45 Est GFR (CKD-EPI 2020), (mL/min/1.73m2) 127.94 06/06/25, 08:45 Calcium, (8.3-10.6) 8.8 mg/dL 06/06/25, 08:45 Glucose, (74-106) 88 mg/dL 06/06/25, 08:45 Anesthesia Assessment and Plan Anesthesia History Personal History: No History of Anesthesia Complications Family History: Family History Unknown Exercise Tolerance Exercise Tolerance: Metabolic Equivalents>4 Pertinent Negatives Pertinent Negatives: No Symptoms of GERD Cardiac & Pulmonary Exam Cardiac Exam: Normal S1/S2 Heart Sounds Pulmonary Exam: Clear Bilateral Breath Sounds Implantable Cardiac Device Does patient have a Pacemaker or an ICD?: No Airway Exam Known Difficult Airway: No Mallampati Class: 1 Mouth Opening: Normal (> 3cm) Thyromental Distance: Greater than 3 cm Neck Range of Motion: Full ROM Neck Circumference: Normal Teeth Condition: Generalized Poor Dentition ASA Classification ASA Score: ASA 2 Emergency Case?: No NPO Status NPO Status: NPO Clears >2 hours, Solids >8 hours Anesthesia Plan Resuscitation Status: Full Code Anesthesia Technique: Spinal Anesthesia Airway Planned: Natural Airway Monitors Used: Standard Monitors
[2025-06-11] MEDS: ceFAZolin 2 GM/50 ML BAG IVPB (08:47)
[2025-06-11] MEDS: Lactated Ringers 1,000 ML 80 ML IV (08:58)
--- NOTE | 2025-06-11 08:59 | ROE_ITS ---
Operative Note Operative Note PRE-OP DIAGNOSIS: Left Knee Osteoarthritis with Valgus Deformity POST-OP DIAGNOSIS: same PROCEDURE: Left Total Knee Replacement with Intraoperative Navigation SURGEON: Daryn Carroll AUTOMOTIVE COLLISION REPAIR INSTRUCTOR: Patti Koroma ANESTHESIA TYPE: Spinal Refer to Anesthesia Record ESTIMATED BLOOD LOSS: 200 PATHOLOGY: none sent TOURNIQUET TIME: 0 COMPLICATIONS: None Patient was transported to: PACU Patient's condition: stable Implants: 1. Depuy Attune Cementless Cruciate Retaining Femoral Component, Size 6 2. Depuy Attune Cementless Fixed Bearing Tibial Component, Size 6 3. Depuy Attune 6x10mm CR/FB Poly Indications: I have seen Dion in clinic for symptoms of LEFT knee arthritis, confirmed with radiographic findings. Dion has exhausted nonoperative methods and was having significant limitations in daily function and desired better function and less pain. I discussed the technical details of a knee replacement. I explained the risks of the procedure to include, but not limited to, bleeding, infection, pain, stiffness, fracture, damage to nerves and vessels, damage to muscles and tendons, loosening, need for repeat procedure, blood clot and cardiopulmonary demise. Despite these risks, Dion elected to proceed. Findings: There was significant signs of arthritis throughout the knee, primarily of the medial compartment with varus deformity of the medial tibia. Procedure Description: Dion was greeted in the preoperative holding area where the correct side was identified and marked. The consent was reviewed with the patient and signed. The history and physical was updated. All questions were answered. Preoperative mediacations were administered: Acetaminophen 1000mg, Celebrex 400mg, and Gabapentin 300mg. An adductor canal block was then administered by the anesthesia team in the DSU. He was taken back to the operating room. A spinal anesthestic was then administered. The patient was placed into the supine position on the operating room table. Posts were placed for positioning during the procedure. All bony prominences were well padded. Prophylactic antibiotics in the form of Cefazolin were administered. 1g of Tranxemic Acid was given intravenously within 30 minutes of incision. The left leg was then prepped with Chloraprep and draped in a standard fashion with impervious stockinette. A second prep with Chloraprep was performed prior to application of Iodine impregnated skin protection. A timeout to confirm correct identity, side and site, procedure, allergies, anesthesia, and medical concerns was performed. With the knee in some flexion, a midline incision was made overlying the knee. Full thickness skin flaps were raised once the extensor mechanism was encountered. These were raised medially and laterally. Any bleeding was controlled with electrocautery. Once the extensor mechanism was fully exposed, a medial parapatellar arthrotomy was performed in a flexed position. All bleeding from the arthrotomy and the geniculate arteries was coagulated. A medial subperiosteal peel was performed with electrocautery to the midcoronal plane. Due to the significant varus deformity the entire medial tibial plateau was exposed. The fat pad was removed while keeping the patellar tendon protected. The anterior distal femur synovium was removed for later visualization. The ACL and PCL were resected and the anterior horn of the lateral meniscus was transected. The knee was then flexed with the patella everted. Large osteophytes from the tibia were removed. Large osteophytes from the femur were removed. There is an extensive amount of synovitis within the knee and thus a more aggressive synovectomy was performed. Once this was completed, a single starting pin was then placed 1cm anterior to the PCL insertion and the notch in the direction of the femoral head. The OrthoAlign device was applied over the pin. It was oriented to be in line with the epicondylar axis and the trochlear groove. It was then pinned into place. The navigation computer was then turned on and calibrated. The distal femur cut was set at 1 degrees varus and 3.5 degrees flexion. The distal femur cutting guide then was positioned for a 9mm cut. The distal femur was cut with an oscillating saw while protecting the soft tissues. The tibia was then addressed. The OrthoAlign device was placed over the tibial tubercle and medial tibia and secured into position. Once again, OrthoAlign was calibrated and then set for a 2 degree varus cut and 6 degrees of posterior slope. With this locked into position, the cut thickness stylus was used to assess cut thickness. The medial side, most involved side, was set for a 2-3mm cut. This was then held in position and pinned into place with 2 additional pins and a cross pin for stability. The medial and lateral collateral ligaments were protected and the cut was performed. With this completed, it was assessed and noted to be of appropriate dimensions. The guide and OrthoAlign was removed. A spacer block was inserted and the knee was brought into extension to ensure enough space was present. . The Orthoalign gap balancing device was then placed in extension. This was used to ensure that the ligaments were properly balanced with up to 2 to 3 mm laxity laterally compared medially. The extension gap was measured as 22mm. The knee was then brought into 90 degrees of flexion and the ligament circular sawyer stone was once again placed. Under the same amount of force the flexion gap was measured. The Attune specific jig was placed and the flexion gap was made to match the extension gap. The femur was then sized as a size 6. The 4-in-1 cutting guide was the placed. An tierney wing was used to confirm appropriate position of the anterior cut to avoid notching. This cutting guide was ensured to be flush on the cut surface and then pinned into place with headed pins. While protecting the soft tissues, quad tendon, and collateral ligaments, the anterior and posterior cuts were performed with a saw. The central two pins were removed and the posterior and anterior chamfers were cut next. The notch-cutting guide was placed. This was pinned to lateralize the femoral component as much as possible while keeping it flush on the cut surface. This was then pinned into position. A saw was used to make the notch cut. A rasp smoothed the cut surfaces. The medial and lateral menisci were removed. A trial femoral component was then inserted, impacted down to the cut surfaces, and the lug holes were drilled. A provisional trial tibial component was placed and the knee was brought through range of motion. There was noted to be excellent extension and flexion. There was no significant instability. The patella was tracking without thumbs. A size 10mm polyethylene component provided the best range of motion and stability with less than 2mm gapping with medial and lateral stress and full extension without significant hyperextension. The tibial cut surface was fully exposed. The tibia was then sized as a 6. The tibia had been previously marked during trialing to correspond to the center of the tibial component to help with rotation. The trial was aligned to this patti, approximately rotated to the medial 1/3rd of the tibial tubercle. The trial was pinned into place. The tibia was prepared with a reamer and a keel punch and lug holes. The trial components were removed. The final components were opened on the back table. The periosteal and capsular tissues, especially posteriorly, around the knee were then systematically injected with a periarticular cocktail consisting of 246mg of Ropivacaine, 0.5mg of Epinephrine, 0.08mg of Clonidine, and 30mg of Ketorolac, diluted to 100cc. Then, the knee components were placed. Starting with the tibial component, the tibia was subluxed anteriorly and the lug holes of the component were lined up. The tibia was then impacted with an impactor and mallet until the tibial component was in contact with the tibia. Then, the femoral component was inserted. The lug holes were aligned and the component was impacted into position. The final polyethylene component was inserted. The knee was irrigated with Surgiphor Betadine solution. This was allowed to sit in the knee for 3 minutes and then it was thoroughly irrigated out with saline. The knee was then taken through range of motion. The patella was tracking with a no-thumbs technique. A complete synovectomy of the patella was performed. Any prominence to the lateral facet was resected with a rongeur. The capsule was then reapproximated with a No. 1 Vicryl at multiple locations. The capsule was finally closed with a No. 2 Stratafix, barbed suture. Deep tissues were then reapproximated with 0 Vicryl and 2-0 Vicryl. The skin was closed with a running 3-0 Monocryl in a subcuticular fashion. This was reinforced with skin glue. A Mepilex silver dressing was applied along with a [id number] VAMSI wrap. A CryoCuff was applied. Dion was transferred to the hospital bed without difficulty an suffering no apparent complication. Dion has a good prognosis. Physical therapy will start today and without restrictions, weight-bearing as tolerated. Aspirin 81mg BID will be used for DVT prophylaxis. Date of Procedure: 06/11/25
[2025-06-11] MEDS: TRANEXAMIC ACID/SOD. CHL. 1,000 MG/100 ML BAG 600 MG IVPB (09:07)
[2025-06-11] MEDS: ROPIvacaine/EPI/CLONIDINE/KET 50 ML SYRINGE IJ (09:25)
--- NOTE | 2025-06-11 09:26 | W.ANESNERVE ---
Nerve Block Single Injection Procedure Date and Time Date Performed: 06/11/25 Procedure Start: 08:36 Location Where Procedure Performed Procedure Location: Day Surgery Unit Reason Performed: Postoperative Analgesia Requesting Provider: Daryn Carroll Timeout Performed Timeout Performed: Yes Monitoring Used Blood Pressure, SpO2 and See EMR for corresponding vital signs Sterility Sterility: Hand Hygiene, Surgical Cap, Surgical Mask, Sterile Gloves and Chlorhexidine Sedation Given During Procedure Sedation Given (Indicate Dose Given): No Sedation given Patient Mental Status Patient Mental Status: Awake Nerve Block 1st Nerve Block: Laterality: Left Block Type: Adductor Canal Ultrasound Image Saved?: Yes Needle / Catheter Used: 100mm SonoPlex II Local Anesthetic Bolus (Indicate Dose Given): Lidocaine used for local infiltration of skin, Injected in 3-5ml increments after negative blood aspiration, Bupivacaine 0.25% Dose:: 10ml and Exparel Dose:: 10ml Additives (Indicate Dose Given): None Ultrasound: Sterile probe cover and gel used Nerve Stimulator: Supplement to Ultrasound use and No twitch or parasthesia noted < 0.5 mA Paresthesia: None Procedure Tolerated: No Complications and Patient tolerated well Procedure Outcome: Successful Performed By: Yehuda Beal
[2025-06-11] MEDS: Tranexamic Acid 650 MG TAB 1300 MG PO (12:12)
[2025-06-11] MEDS: oxyCODONE 5 MG TAB PO ×2 (12:12→12:39)
--- NOTE | 2025-06-11 12:31 | W.ANESPOSTOP ---
Postoperative Evaluation Date, Time and Location Date Performed: 06/11/25 Time Performed: 11:40 Patient Location: Day Surgery Unit Vital Signs Most Recent Imported Vital Signs: Most Recent Vital Signs Temp Pulse Resp BP Pulse Ox 36.5 C 75 16 180/116 H 98 06/11/25 12:14 06/11/25 12:14 06/11/25 12:14 06/11/25 12:14 06/11/25 12:14 Pain Score Most Recent Pain Score: Most Recent Pain Score Pain Level 2 06/11/25 11:40 Assessment Mental Status: Awake (Alert & Oriented to Patient Baseline) Airway and Respiratory Function: Patent airway with normal (patient baseline) respiratory exam Cardiovascular Function: Hemodynamically Stable Hydration Status: Adequately Hydrated Nausea & Vomiting: No Nausea or Vomiting Pain: Pain is tolerable per patient Peripheral Nerve Block: Regional nerve block not resolved at time of post operative discharge Postoperative Comments:: Pt had a complaint of feeling like testicles are in a vice. I explained this may have been due to positioning during surgery and if so should improve over time but I would let surgeon know. Dr. Carroll examined without concerning findings but did note some urinary leakage. Will encourage voiding and do bladder scan if unable.
--- NOTE | 2025-06-11 13:47 | PT.INIE ---
PT Notes Visit Reasons: L TKR Physical Therapy Day Surgery Initial Evaluation Date: 06/11/2025 Referring Doctor: KAITLIN Milner PT Orders: PT CONSULT: S/P Ortho surgery Precautions: WBAT through the left LE with AD. Patient Profile/Admitting Diagnosis: Dion is a 55-year-old male with degenerative joint disease of the left knee and is status post left total knee arthroplasty on postoperative day 0. PMHX: All Active Problems (Updated 05/05/25 @ 14:43 by Jada Elias) Right carpal tunnel syndrome (Acute) S/P Right ECTR: 05/08/2024Osteoarthritis of left knee (Acute) Bilateral carpal tunnel syndrome (Acute) Opioid use disorder (Acute) Hyperlipidemia (Acute) HTN (hypertension) (Chronic) Medical History (Updated 05/05/25 @ 14:43 by Jada Elias) Frequent urination ADD (attention deficit disorder) High cholesterol Surgical History (Updated 05/08/24 @ 11:47 by KAITLIN Milner) Left carpal tunnel syndrome s/p left ECTR DOS: 06/27/23 History of bilateral inguinal hernia repair S/P ACL reconstruction LEFT PATELLAR TENDON GRAFT--2002 Social History/Home Situation: Incarcerated. Independent with all aspects of ADLs prior to surgery but was having increasing difficulty with mobility ADL performance due to worsening arthritis Equipment Owned/DME: [facility] Subjective: Agreeable to session. Denied headache, chest pain, and lightheadedness throughout. Reported 4/10 pain in the left knee at rest 100 movement. Objective: General Observation: John wraps to left LE. Cryo/Cuff to left knee. TEDS to right leg and foot. Mental Status: a and O x 4 Pain: 4/10 ROM: Right Lower Extremity: Hip flexion WFL. Hip abduction WFL. Knee flexion WFL. Ankle dorsiflexion WFL. Ankle plantarflexion WFL. Left Lower Extremity: Hip flexion WFL. Hip abduction WFL. Knee flexion 0 100 degrees. ankle dorsiflexion WFL. Ankle plantarflexion WFL. Strength: Right Lower Extremity: Hip flexors 5/5. Hip abductors 5/5. Knee flexors 5/5. Knee extensors 5/5. Ankle dorsiflexors 5/5. Ankle plantarflexors 5/5. Left Lower Extremity:Hip flexors 4/5. Hip abductors 4/5. Knee flexors 3-/5. Knee extensors 4-/5. Ankle dorsiflexors 5/5. Ankle plantarflexors 5/5. Sensation: Intact as to pain and light pressure in bilateral lower extremities Bed Mobility/Transfers: Minimal cueing provided for use of B hands as needed for support, movement sequence, AD management, and posture to reduce fall risk and minimize pain report Supine to sit standby assist Sit to stand contact-guard assist Stand to sit standby assist with FWW Bed to chair standby assist with FWW Gait: Facilitate safe and correct performance of level surface ambulation covering a distance of 150 feet using front wheeled walker with standby assist and minimal verbal cueing for limb movement sequence, weight distribution onto walker, AD management, and posture to minimize pain report and reduce fall risk. Denied headache, chest pain, and lightheadedness throughout activity. Stairs: Guided patient with safe and brown negotiation of 3 x 4 inch steps and 2 x 6 inch steps while holding onto bilateral rails with step to gait pattern requiring minimal verbal cueing for limb movement sequence, hand placement, increased knee flexion on the left during each ascent, and posture to minimize pain reported and reduce fall risk. Standby assist only. Balance: Static Sitting: Normal Dynamic Sitting: Good Static Standing: Fair Dynamic Standing: Fair Special Tests: Mobility Limitations Standardized Measure [facility] 6 clicks Basic Mobility Inpatient Short Form: Raw Score: 23 CMS Score: 11% deficit Informed Consent/Education: Patient instructed in purpose of PT consult. Packet containing TKA exercise protocol has been given to patient. Education and training on initial set of exercises that can be done at home have been completed with patient. Trained patient with correct performance of exercises below to maximize motor control, joint flexibility, soft tissue extensibility of the L knee musculature: Access Code: [email or web address] URL: [email or web address] Date: 06/11/2025 Prepared by: Tanja Leiva Exercises - Supine Quad Set - 1 x daily - 7 x weekly - 1 sets - 10 reps - 5 hold - Supine Heel Slide - 1 x daily - 7 x weekly - 1 sets - 10 reps - 5 hold - Supine Ankle Pumps - 1 x daily - 7 x weekly - 1 sets - 10 reps - 5 hold - Small Range Straight Leg Raise - 1 x daily - 7 x weekly - 1 sets - 10 reps - 5 hold - Seated August - 1 x daily - 7 x weekly - 1 sets - 10 reps - 5 hold Assessment: Patient required the use of a front-wheeled walker for all mobility ADL performance to maximize independence and reduce fall risk. Patient presents with clinical signs and symptoms consistent with current/admitting diagnoses that have resulted to mobility limitations, gait instability, generalized weakness, and impairment of motor control as demonstrated by the following impairment level findings: 1. Decreased strength to left knee major muscle groups 2. Impaired standing balance 3. Limitation of joint range of motion in left knee Impairments are contributing to the following functional limitations: 1. Inability to safely ambulate without assistive device 2. Increase completion time for mobility ADL performance 3. Increased fall risk Patient is assessed as a 28310 moderate complexity based on the following: History: 55-year-old female with impairment level findings, functional limitations, and past medical history as indicated above Examination: Demonstrable impairment in strength, balance, and mobility level with underlying impairments and functional limitations as documented above Presentation: Evolving Decision Makin moderate complexity Goals: N/A. PT evaluation and 1-2 treatment sessions only for functional mobility training using recommended AD and for HEP instruction. Plan of Care/Treatment Plan: N/A. PT evaluation and 1-2 treatment session only for functional mobility training using recommended AD and for HEP instruction. DISCHARGE RECOMMENDATIONS: Home when medically cleared by orthopedic surgeon. Recommend outpatient PT services in order to optimize functional mobility outcomes and facilitate return to independent community ambulation without an assistive device. TREATMENT CODE/TIME: 36826 x 20 minutes for 1 unit, 94715 x 16 minutes for 1 unit (12:52-13:26). Thank you for the opportunity to participate in the care of this patient. Tanja Leiva PT, DPT, CLT [facility] [place], [place]
== END 2025-06-11 13:52 | disposition home or self-care (01) ==
PROVIDERS: PCP Physical Therapist; Visit Provider Student in an Organized Health Care Education/Training Program
PROC: (CPT 27447; principal; 2025-06-11 09:00)
DX: M17.12 Unilateral primary osteoarthritis, left knee (principal); G89.18 Other acute postprocedural pain
CPT/HCPCS: 27447; 20985; 64447; 97162; 97530; C1776; J0665; J0666; J0690; J1100; J2250; J2401; J2405; J2704

== ENCOUNTER 2025-06-23 12:04 | Outpatient (CLI) | payer OTHER, SELFPAY ==
--- NOTE | 2025-06-23 08:00 | DI.RAD_ITS ---
Exam(s) XR KNEE LT 1V XR STANDING ALIGNMENT EXAM: XR STANDING ALIGNMENT and XR knee LT 1 V CLINICAL HISTORY: 1ST POST OP S/P L TKA. TECHNIQUE: 2D digital imaging was performed. Five images were obtained. COMPARISON: CR XR KNEE LT 4V+ from 04/10/2023 CR XR STANDING ALIGNMENT from 11/07/2024 CR XR KNEE LT 1V from 11/07/2024 FINDINGS: BONES: The hips are well maintained. The right knee is unremarkable. There has been interval placement of a left total knee arthroplasty which appears in good position. There are no suspicious lucencies around the orthopedic hardware. The ankles are well maintained.There is no significant leg length discrepancy. SOFT TISSUE: Normal. IMPRESSION: Status post placement of a left total knee arthroplasty which appears in good position. DATA REPOSITORY: RADIATION DOSE DELIVERED:
== END 2025-06-23 12:05 | disposition home or self-care (01) ==
LOC: DIORS 12:04
PROVIDERS: PCP Physical Therapist; Visit Provider Student in an Organized Health Care Education/Training Program
DX: Z96.652 Presence of left artificial knee joint (principal)
CPT/HCPCS: 73560; 77073